=== PATIENT | female | born 1980 | race Caucasian/White ===

== ENCOUNTER 2016-12-16 06:35 | Emergency (ER) | payer SELFPAY ==
[~2016-12-16 06:35] MED LIST: CEPHALEXIN500 MG PO; CIPRO500 MG PO; LAC PO; MAC100 PO; NORCO1 TA2 PO; ONDANSETRON4 M3 PO; PROMETHAZINE25 M3 PO
[2016-12-16 07:48] LABS: BASOPHIL % 1.3 % (0-2); PLATELET COUNT 339 x10^3mcL (130-400)
[2016-12-16 07:56] LABS: CALCIUM 9.1 mg/dL (8.5-10.1); CARBON DIOXIDE 25.3 mmol/L (21-32); CHLORIDE SERUM 103 mmol/L (98-107); CREATININE SERUM 0.6 mg/dL (0.6-1.0); GFR1 > 60 mL/min; GLUCOSE SERUM 112 mg/dL (74-106); POTASSIUM SERUM 3.4 mmol/L (3.5-5.1); SODIUM SERUM 137 mmol/L (136-145)
[2016-12-16 08:00] LABS: ALBUMIN 3.6 g/dL (3.4-5.0); ALKALINE PHOSPHATASE 40 U/L (46-116); ALT/SGPT 16 U/L (14-59); AMYLASE 48 U/L (25-115); AST/SGOT 10 U/L (15-37); BILIRUBIN TOTAL 0.36 mg/dL (0.20-1.00); LIPASE 183 IU/L (73-393); TOTAL PROTEIN, SERUM 7.6 g/dL (6.4-8.2)
[2016-12-16 09:19] VITALS: BP 102/77
== END 2016-12-16 09:19 | disposition home or self-care (01) ==
LOC: ED 06:35
PROVIDERS: Emergency Medicine
DX: K29.70 Gastritis, unspecified, without bleeding (principal); R25.2 Cramp and spasm; R11.2 Nausea with vomiting, unspecified
CPT/HCPCS: 83880; J1885; J2405; J7030

== ENCOUNTER 2017-03-18 22:38 | Emergency (ER) | payer SELFPAY ==
[~2017-03-18] VITALS: Ht 170.2 cm; Wt 68.0 kg
[2017-03-18 22:58] VITALS: BP 123/88; Ht 170.2 cm; Wt 68.0 kg
== END 2017-03-19 04:42 | disposition left against medical advice (07) ==
LOC: ED 22:38
DX: Z53.21 Procedure and treatment not carried out due to patient leaving prior to being seen by health care provider (principal)

== ENCOUNTER 2018-06-23 22:43 | Emergency (ER) | payer SELFPAY ==
[~2018-06-23] VITALS: Ht 170.2 cm; Wt 94.8 kg
[2018-06-23 22:49] VITALS: Ht 170.2 cm; Wt 94.8 kg
[2018-06-23 23:18] LABS: BASOPHIL % 0.3 % (0-2); PLATELET COUNT 323 x10^3mcL (130-400); RED CELL DISTRIBUTION WIDTH 14.2 % (11.5-14.5)
[2018-06-23 23:27] LABS: CARBON DIOXIDE 24.7 mmol/L (21-32); CHLORIDE SERUM 102 mmol/L (98-107); CREATININE SERUM 0.8 mg/dL (0.6-1.0); GFR1 > 60 mL/min; GLUCOSE SERUM 106 mg/dL (74-106); POTASSIUM SERUM 4.2 mmol/L (3.5-5.1); SODIUM SERUM 139 mmol/L (136-145)
[2018-06-23 23:32] LABS: ALBUMIN 3.7 g/dL (3.4-5.0); ALKALINE PHOSPHATASE 66 U/L (46-116); ALT/SGPT 29 U/L (14-59); AST/SGOT 20 U/L (15-37); BILIRUBIN TOTAL 0.2 mg/dL (0.20-1.00)
[2018-06-24 00:46] VITALS: BP 112/65
== END 2018-06-24 00:46 | disposition home or self-care (01) ==
LOC: ED 22:43
PROVIDERS: Emergency Medicine
DX: J11.1 Influenza due to unidentified influenza virus with other respiratory manifestations (principal); R19.7 Diarrhea, unspecified; F41.9 Anxiety disorder, unspecified
CPT/HCPCS: 87804; J2405; J7030; Q0092

== ENCOUNTER 2019-04-20 16:21 | Emergency (ER) | payer SELFPAY ==
[~2019-04-20] VITALS: Ht 170.2 cm; Wt 103.0 kg
[2019-04-20 16:25] VITALS: Ht 170.2 cm; Wt 103.0 kg
[2019-04-20 18:24] VITALS: BP 112/79
== END 2019-04-20 18:24 | disposition home or self-care (01) ==
LOC: ED 16:21
DX: J98.01 Acute bronchospasm (principal); Z98.890 Other specified postprocedural states
CPT/HCPCS: J0171; J7512; J7613; J7644